=== PATIENT | male | born 1985 | race Caucasian/White ===

== ENCOUNTER 2019-09-22 01:42 | Emergency (ER) | payer OTHER, MEDICAID ==
[2019-09-22] MEDS ORDERED: XYLOCAINE 1% HCL 20 ML MDV IJ ONE (01:43)
--- NOTE | 2019-09-22 02:18 | ERPHSYRPT ---
- History of Present Illness Time Seen by Provider: 09/22/19 02:05 Source: patient, police Exam Limitations: no limitations Patient Subjective Stated Complaint: pt c/o pain to rt lower arm with edema noted to vein Triage Nursing Assessment: pt c/o pain to rt forearm with edema noted to vein site in arm anteriorly and posteriorly. Pt states, "this occured approx 2 months ago but it has just gotten worse". Pt unable to get away from the pain or lay down to get comfortable. No redness noted. Physician History: This is a 33-year-old resident male of the correction who is right-handed and presents with right forearm pain for 2 months. He does inject drugs into his veins but does not use this particular vein that is causing him pain. Occurred: other (2 months) Method of Injury: other (Drugs into his system via vein) Quality: aching Severity of Pain-Max: moderate Severity of Pain-Current: mild Extremities Pain Location: forearm: right Modifying Factors: Improves With: movement, other Associated Symptoms: No chills, No fever Allergies/Adverse Reactions: No Known Drug Allergies Allergy (Verified 09/22/19 01:55) Hx Tetanus, Diphtheria Vaccination/Date Given: Yes Hx Influenza Vaccination/Date Given: No Hx Pneumococcal Vaccination/Date Given: No Immunizations Up to Date: Yes Travel Risk - International Travel Have you traveled outside of the country in past 3 weeks: No Have you or anyone close to you been diagnosed with or: No Do your reside in a community with a known COVID-19 case?: No - Coronavirus Screening Has patient experienced Coronavirus symptoms: No - Review of Systems Constitutional: No Symptoms Eyes: No Symptoms Ears, Nose, & Throat: No Symptoms Respiratory: No Symptoms Cardiac: No Symptoms Abdominal/Gastrointestinal: No Symptoms Genitourinary Symptoms: No Symptoms, Penile Discharge Musculoskeletal: No Symptoms Skin: No Symptoms (Tenderness right forearm) Neurological: No Symptoms Psychological: No Symptoms Endocrine: No Symptoms Hematologic/Lymphatic: No Symptoms Immunological/Allergic: No Symptoms All Other Systems: Reviewed and Negative - Past Medical History Pertinent Past Medical History: Yes Neurological History: No Pertinent History ENT History: No Pertinent History Cardiac History: Hypertension Respiratory History: No Pertinent History Endocrine Medical History: No Pertinent History Musculoskeletal History: Other GI Medical History: Hepatitis History: Dialysis Psycho-Social History: Other Male Reproductive Disorders: No Pertinent History Other Medical History: hep C. compartmental syndrome - Past Surgical History Past Surgical History: Yes Neuro Surgical History: No Pertinent History Cardiac: No Pertinent History Respiratory: No Pertinent History Gastrointestinal: No Pertinent History Genitourinary: No Pertinent History Musculoskeletal: Amputation Male Surgical History: No Pertinent History Other Surgical History: LT ABOVE THE KNEE - Social History Smoking Status: Former smoker How long have you smoked: YRS Exposure to second hand smoke: Yes Drug Use: marijuana, bath salts, methamphetamines Patient Lives Alone: No (correction) - Nursing Vital Signs Nursing Vital Signs: Initial Vital Signs Temperature 99.1 F 09/22/19 01:45 Pulse Rate 84 09/22/19 01:45 Respiratory Rate 16 09/22/19 01:45 Blood Pressure 121/88 09/22/19 01:45 O2 Sat by Pulse Oximetry 100 09/22/19 01:45 Pain Scale Pain Intensity 7 - Physical Exam General Appearance: no apparent distress, alert, anxiety Eyes, Ears, Nose, Throat Exam: normal ENT inspection, moist mucous membranes Neck Exam: normal inspection, non-tender, supple, full range of motion Cardiovascular/Respiratory Exam: chest non-tender Abdominal Exam: non-tender Back Exam: normal inspection, normal range of motion, No CVA tenderness, No vertebral tenderness Shoulder Exam: normal inspection, non-tender, no evidence of injury, normal ROM Elbow/Forearm Exam: normal inspection, no evidence of injury, normal ROM, soft tissue tenderness (Along the distribution of a vein on his forearm. Feels as though it is cordlike.) Wrist Exam: normal inspection, non-tender, no evidence of injury, ecchymosis Hand Exam: normal inspection, non-tender, no evidence of injury, normal ROM Neuro/Tendon Exam: normal sensation, normal motor functions, normal tendon functions Mental Status Exam: alert, oriented x 3, cooperative Skin Exam: other (See above. Right upper extremity forearm covered in tattoos) SpO2 Interpretation: normal SpO2: 100 O2 Delivery: Room Air - Course Nursing assessment & vital signs reviewed: Yes - Progress Progress: unchanged Counseled pt/family regarding: diagnosis, need for follow-up - Departure Departure Disposition: [facility]/Senior Living Clinical Impression: Thrombophlebitis Condition: Stable Critical Care Time: No Referrals: DOCTOR,NO FAMILY [Primary Care Provider] - Additional Instructions: Warm compresses to area twice a day. Use ibuprofen and Tylenol for pain control. Take antibiotic as prescribed Prescriptions: Cephalexin Mh 500 mg [Keflex 500 mg] 500 mg PO TID #21 capsule
[2019-09-22] MEDS ORDERED: TORAdol 30 mg Injection IM ONE (02:20)
[2019-09-22] MEDS ORDERED: Rocephin 1000 MG INJ IM ONE (02:20)
[2019-09-22] MEDS ORDERED: TORAdol 30 mg Injection ONE ×2 (02:29→02:33)
[2019-09-22] MEDS ORDERED: Rocephin 1000 MG INJ ONE (02:30)
[2019-09-22 02:34] VITALS: BP 128/77; PULSE 78; O2SAT 98
== END 2019-09-22 02:48 | disposition home or self-care (01) ==
LOC: ED 01:42
DX: I80.9 Phlebitis and thrombophlebitis of unspecified site (principal); I10 Essential (primary) hypertension; B18.2 Chronic viral hepatitis C; T79.A0XA Compartment syndrome, unspecified, initial encounter; F19.10 Other psychoactive substance abuse, uncomplicated
CPT/HCPCS: 96372; 99284; J0696; J1885

== ENCOUNTER 2019-10-22 18:51 | Emergency (ER) | payer MEDICAID, OTHER ==
[2019-10-22 19:07] VITALS: O2SAT 98
--- NOTE | 2019-10-22 19:21 | ERPHSYRPT ---
- History of Present Illness Time Seen by Provider: 10/22/19 19:19 Source: patient Patient Subjective Stated Complaint: Right arm pain and swelling Triage Nursing Assessment: Patient ambulated back to ED and transferred self to bed. Patient A+O X3. Patient's skin pink, warm and dry. Patient complains of right arm pain and swelling. Patient states he was recently dx by ultrasound with a blood clot in right arm. Patient states he was touching a vein in his lower arm and felt something move up this arm. Patient's pain 8/10 constant aching pain. Right arm noted to be warm, red and swollen. 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 He states he has had this pain for the past 3 months which prompted an ultrasound of his right upper extremity finding the superficial thrombophlebitis and resulting treatment for a concern of a propagating DVT with Coumadin. He states whenever he lays his hand down at rest he noticed that his right hand turns purple in color however whenever he raises the hand he noticed that his color returns and the swelling resolves. He has been taken Tylenol for the pain with no relief. He is currently on 5 mg of Coumadin daily and reportedly has not missed a dose. He denies any fevers, chills, recent IV drug abuse and states that he usually injects in his right AC/right basilic region. He denies any recent trauma to the affected hand. Severity: mild Modifying Factors: Improves With: acetaminophen Associated Symptoms: No nausea, No vomiting, No abdominal pain, No shortness of breath, No chest pain, No fever Allergies/Adverse Reactions: No Known Drug Allergies Allergy (Verified 10/22/19 19:07) Home Medications: Acetaminophen 500 mg [Tylenol Extra Strength 500 mg] 1 tab PO BID [History] OLANZapine [Zyprexa Zydis] 1 tab PO DAILY 10/22/19 [History] Omeprazole 1 cap PO DAILY 10/22/19 [History] Warfarin Sodium 5 mg [Coumadin 5 MG] 1 tab PO DAILY 10/22/19 [History] Hx Tetanus, Diphtheria Vaccination/Date Given: Yes Hx Influenza Vaccination/Date Given: Yes Hx Pneumococcal Vaccination/Date Given: No Immunizations Up to Date: Yes Travel Risk - International Travel Have you traveled outside of the country in past 3 weeks: No (n) Have you or anyone close to you been diagnosed with or: No Do your reside in a community with a known COVID-19 case?: Yes If Yes where:: [place] - Coronavirus Screening Has patient experienced Coronavirus symptoms: No - Review of Systems Constitutional: No Fever, No Chills Ears, Nose, & Throat: No Symptoms Respiratory: No Symptoms Cardiac: No Symptoms Musculoskeletal: Other (Right forearm pain) Skin: No Symptoms All Other Systems: Reviewed and Negative - Past Medical History Pertinent Past Medical History: Yes Neurological History: No Pertinent History ENT History: No Pertinent History Cardiac History: Hypertension Respiratory History: No Pertinent History Endocrine Medical History: No Pertinent History Musculoskeletal History: Other GI Medical History: Hepatitis History: Dialysis Psycho-Social History: Other Male Reproductive Disorders: No Pertinent History Other Medical History: hep C. compartmental syndrome - Past Surgical History Past Surgical History: Yes Neuro Surgical History: No Pertinent History Cardiac: No Pertinent History Respiratory: No Pertinent History Gastrointestinal: No Pertinent History Genitourinary: No Pertinent History Musculoskeletal: Amputation Male Surgical History: No Pertinent History Other Surgical History: LT ABOVE THE KNEE - Social History Smoking Status: Former smoker How long have you smoked: YRS Exposure to second hand smoke: No Drug Use: marijuana, bath salts, methamphetamines, narcotics Patient Lives Alone: No (group home) - Nursing Vital Signs Nursing Vital Signs: Initial Vital Signs Pulse Rate 84 10/22/19 18:54 Respiratory Rate 18 10/22/19 18:54 Blood Pressure 141/109 10/22/19 18:54 O2 Sat by Pulse Oximetry 98 10/22/19 18:54 Pain Scale Pain Intensity 3 - Physical Exam General Appearance: no apparent distress, alert Eye Exam: PERRL/EOMI, eyes nml inspection Ears, Nose, Throat Exam: normal ENT inspection, No pharyngeal erythema, No tonsillar exudate Neck Exam: normal inspection, non-tender, supple Respiratory Exam: normal breath sounds, lungs clear, airway intact, No chest tenderness, No respiratory distress, No diminished breath sounds, No accessory muscle use, No prolonged expirations Cardiovascular Exam: regular rate/rhythm, normal heart sounds, normal peripheral pulses, capillary refill <2 sec, No murmur, No edema, No pulse deficit Gastrointestinal/Abdomen Exam: soft, No tenderness, No distention, No mass Rectal Exam: deferred, not done Back Exam: normal inspection Extremity Exam: other (Tenderness to the dorsal aspect of the distal right wrist. No obvious swelling, erythema, induration or fluctance noted to the entire right upper extremity. No deformity or crepitus. No pain out of proportion. Compartments are soft in the entire right arm. Motor function intact in the right hand. Left lower leg was surgically amputated. Both the RUE and LUE appeared to be equal in size.. ), No swelling Neurologic Exam: alert, oriented x 3, cooperative Skin Exam: normal color, warm, dry, other (No evidence of erythema, increased warmth, induration, fluctance, or palpable cords noted to the entire RUE), No rash, No petechiae, No jaundice, No abrasion, No cyanosis, No jaundice, No laceration, No mottled, No pale SpO2: 98 O2 Delivery: Room Air - Course Nursing assessment & vital signs reviewed: Yes - Radiology Exams Wrist X-ray Interpretation: Interpreted by me, Reviewed by me, Negative (No evidence of fracture, dislocation, retained foreign body, soft tissue swelling or soft tissue air) Ordered Tests: Active Orders 24 hr Category Date Time Status WRIST (MIN 3 VIEWS) Stat Exams 10/22/19 19:28 Taken BMP Stat Lab 10/22/19 19:25 Completed CBC W DIFF Stat Lab 10/22/19 19:25 Completed PROTIME WITH INR Stat Lab 10/22/19 19:25 Completed Medication Summary Discontinued Medications Generic Name Dose Route Start Last Admin Trade Name Freq PRN Reason Stop Dose Admin Enoxaparin Sodium 110 mg 10/22/19 20:09 10/22/19 20:32 Enoxaparin Sodium SQ 10/22/19 20:10 Not Given 1XONLY ONE Enoxaparin Sodium Confirm 10/22/19 20:31 Enoxaparin Sodium Administered 10/22/19 20:32 Dose 80 mg SQ .STK-MED ONE Enoxaparin Sodium 80 mg 10/22/19 20:32 10/22/19 20:44 Enoxaparin Sodium SQ 10/22/19 20:33 Not Given STAT ONE Enoxaparin Sodium 110 mg 10/22/19 20:37 10/22/19 20:43 Enoxaparin Sodium SQ 10/22/19 20:38 110 mg STAT STA Administration Enoxaparin Sodium Confirm 10/22/19 20:41 Enoxaparin Sodium Administered 10/22/19 20:42 Dose 120 mg SQ .STK-MED ONE Lab/Rad Data: Laboratory Result Diagrams 10/22/19 19:25 10/22/19 19:25 Laboratory Results 10/22/19 10/22/19 10/22/19 Range/Units 19:25 19: 19: WBC 6.7 (4.0-10.5) K/mm3 RBC 4.92 (4.1-5.6) M/mm3 Hgb 15.0 (12.5-18.0) gm/dl Hct 43.6 (42-50) % MCV 88.6 (78-100) fl MCH 30.5 (26-32) pg MCHC 34.4 (32-36) g/dl RDW 14.2 H (11.5-14.0) % Plt Count 201 (150-450) K/mm3 MPV 9.3 (7.5-11.0) fl Gran % 57.1 (36.0-66.0) % Eos # (Auto) 0.22 (0-0.5) Absolute Lymphs (auto) 2.02 (1.0-4.6) Absolute Monos (auto) 0.62 (0.0-1.3) Lymphocytes % 30.1 (24.0-44.0) % Monocytes % 9.2 (0.0-12.0) % Eosinophils % 3.3 (0.00-5.0) % Basophils % 0.3 (0.0-0.4) % Absolute Granulocytes 3.84 (1.4-6.9) Basophils # 0.02 (0-0.4) PT 16.1 H (8.83-12.87) SECONDS INR 1.41 (0.8-3.0) Sodium 142 (137-145) mmol/L Potassium 4.3 (3.5-5.1) mmol/L Chloride 103 (98-107) mmol/L Carbon Dioxide 30 (22-30) mmol/L Anion Gap 12.4 (5-15) MEQ/L BUN 13 (9-20) mg/dL Creatinine 0.81 (0.66-1.25) mg/dL Estimated GFR > 60.0 ML/MIN Glucose 92 (74-106) mg/dL Calcium 9.6 (8.4-10.2) mg/dL - Progress Progress: unchanged Progress Note: 10/22/19 20:14 I reviewed the US report of the RUE that was brought with the patient. US was performed on 09/26/19 and significant for a superficial thrombus in the right basilic vein but was close to the deep venous system which prompted him to be treated with anticoagulant, specifically warfarin. I spoke to Dr. Hills, group home physician, and discussed the case with him. He was ok with me scheduling a RUE US as an OP for a later date and ok bridging with Lovenox for 5 days while he managed the patient's Coumadin level and monitored his INR until the patient was therapeutic while the patient was in group home. 10/23/19 00:24 The patient received Lovenox prior to discharge for a subtherapeutic INR. Outpatient US scheduled for 10/24/19 with radiology at this facility. Low suspicion for infectious etiology. Pain could be from superficial thrombophlebitis, contusion, or malingering. 10/23/19 00:29 Counseled pt/family regarding: lab results, diagnosis, need for follow-up, rad results - Departure Departure Disposition: In-patient Admission, Custodial/Halfway Clinical Impression: Wrist pain, right, Subtherapeutic anticoagulation Condition: Stable Critical Care Time: No Referrals: DOCTOR,NO FAMILY [Primary Care Provider] - Instructions: Enoxaparin, Warfarin Additional Instructions: Please return to [facility] on 10/24/19 at 09:30 to the outpatient radiology department for your scheduled ultrasound of your right upper extremity. Please take 110 mg of Lovenox daily SQ until you are therapeutic on your warfarin or your INR is therapeutic levels between 2-3. You will need to have your warfarin dose adjusted accordingly by Dr. Hills. He has ageed to do this while you are in group home. Your INR today was 1.41 Prescriptions: Enoxaparin Sodium [Lovenox] 110 mg SQ DAILY 5 Days #5 syringe
[2019-10-22 19:30] LABS: Absolute Neutrophil Ct (ANC) 3.84 (1.4-6.9); BASOPHIL % 0.3 % (0.0-0.4); Basophil (Absolute #) 0.02 (0-0.4); Eosinophil % 3.3 % (0.00-5.0); Eosinophil (Absolute #) 0.22 (0-0.5); Hematocrit 43.6 % (42-50); Lymphocyte (Absolute #) 2.02 (1.0-4.6); Lymphocytes % 30.1 % (24.0-44.0); Mean Cell Volume 88.6 fl (78-100); Mean Corpuscular Hemoglobin 30.5 pg (26-32); Mean Corpuscular Hgb Concent. 34.4 g/dl (32-36); Mean Platelet Volume 9.3 fl (7.5-11.0); Monocyte (Absolute #) 0.62 (0.0-1.3); Monocytes % 9.2 % (0.0-12.0); Neutrophil % 57.1 % (36.0-66.0); Platelet Count 201 K/mm3 (150-450); Red Blood Count 4.92 M/mm3 (4.1-5.6); Red Cell Distribution Width 14.2 % (11.5-14.0); White Blood Count 6.7 K/mm3 (4.0-10.5)
[2019-10-22 19:32] LABS: INR 1.41 (0.8-3.0); PROTIME 16.1 SECONDS (8.83-12.87)
[2019-10-22 19:36] LABS: ANION GAP 12.4 MEQ/L (5-15); BLOOD UREA NITROGEN 13 mg/dL (9-20); CHLORIDE 103 mmol/L (98-107); Calcium 9.6 mg/dL (8.4-10.2); Carbon Dioxide 30 mmol/L (22-30); Creatinine 1 0.81 mg/dL (0.66-1.25); Glucose 92 mg/dL (74-106); Potassium 4.3 mmol/L (3.5-5.1); SODIUM 142 mmol/L (137-145)
[2019-10-22] MEDS ORDERED: ENOXAPARIN SODIUM SQ ONE ×3 (20:09→20:41)
[2019-10-22] MEDS: ENOXAPARIN SODIUM SQ ONE ×2 (20:35→20:44)
[2019-10-22] MEDS: ENOXAPARIN SODIUM SQ STA ×2 (20:41→20:43)
[2019-10-22 20:55] VITALS: BP 142/84; PULSE 81
--- NOTE | 2019-10-23 08:13 | XRAY ---
Indication: Pain. Foreign body. Comparison: None 3 view right wrist obtained. No bony, articular, or soft tissue abnormalities.
== END 2019-10-22 21:07 | disposition home or self-care (01) ==
LOC: ED 18:51 → EEVIPCON 18:51 → ED 21:07
DX: M25.531 Pain in right wrist (principal); Z79.01 Long term (current) use of anticoagulants; M79.89 Other specified soft tissue disorders
CPT/HCPCS: 36415; 73110; 80048; 85025; 85610; 96372; 99284; J1650

== ENCOUNTER 2021-11-13 23:56 | Emergency (ER) | payer OTHER ==
[2021-11-14] MEDS ORDERED: Sodium Chloride 0.9% 1000 ML 1,000 ML IV STA
[2021-11-14] MEDS ORDERED: Zofran 4 MG/2 ML VIAL IV ONE
[2021-11-14] MEDS ORDERED: Ativan 2 MG/1 ML VIAL IV ONE (00:02)
[2021-11-14] MEDS ORDERED: Pepcid 20 MG VIAL IV ONE ×2 (00:02→00:30)
--- NOTE | 2021-11-14 00:08 | ERPHSYRPT ---
- History of Present Illness Time Seen by Provider: 11/14/21 00:00 Physician History: Patient is brought into the emergency department by EMS after smoking bath salts and vomiting. Patient feels overall not well and he feels he might potentially be septic. Timing/Duration: today Severity: moderate Modifying Factors: Worsens With: other (After smoking bath salts) Associated Symptoms: nausea, vomiting, chills, malaise, No abdominal pain, No shortness of breath, No diaphoresis, No cough, No chest pain, No fever, No he adaches, No loss of appetite, No rash, No syncope, No seizure, No weakness Allergies/Adverse Reactions: No Known Drug Allergies Allergy (Verified 11/14/21 00:01) Home Medications: Gabapentin [Neurontin ] 1 cap PO TID 11/14/21 [History] Hx Tetanus, Diphtheria Vaccination/Date Given: Yes Hx Influenza Vaccination/Date Given: Yes Hx Pneumococcal Vaccination/Date Given: No - Review of Systems Constitutional: Lethargy, Malaise, No Fever, No Chills Eyes: No Symptoms, No Eye Pain, No Vision Changes Ears, Nose, & Throat: No Symptoms, No Ear Pain, No Nose Pain, No Nose Discharge, No Mouth Pain, No Mouth Swelling Respiratory: No Cough, No Dyspnea Cardiac: No Chest Pain, No Edema, No Syncope Abdominal/Gastrointestinal: Nausea, Vomiting, No Abdominal Pain, No Diarrhea, No Hematemesis, No Hematochezia, No Melena Genitourinary Symptoms: No Dysuria, No Hematuria, No Flank Pain Musculoskeletal: No Back Pain, No Neck Pain Skin: No Rash Neurological: No Dizziness, No Focal Weakness, No Sensory Changes Psychological: No Symptoms, Drug Abuse, Anxiety, Emotional Lability, No Alcohol Abuse Endocrine: No Symptoms, No Polydipsia Hematologic/Lymphatic: No Easy Bleeding, No Easy Bruising All Other Systems: Reviewed and Negative - Past Medical History Pertinent Past Medical History: Yes Neurological History: No Pertinent History ENT History: No Pertinent History Cardiac History: Hypertension Respiratory History: No Pertinent History Endocrine Medical History: No Pertinent History Musculoskeletal History: Other GI Medical History: Hepatitis History: Dialysis Psycho-Social History: Other Male Reproductive Disorders: No Pertinent History Other Medical History: hep C. compartmental syndrome - Past Surgical History Past Surgical History: Yes Neuro Surgical History: No Pertinent History Cardiac: No Pertinent History Respiratory: No Pertinent History Gastrointestinal: No Pertinent History Genitourinary: No Pertinent History Musculoskeletal: Amputation Male Surgical History: No Pertinent History Other Surgical History: LT ABOVE THE KNEE - Social History Smoking Status: Former smoker How long have you smoked: YRS Exposure to second hand smoke: No Drug Use: marijuana, bath salts, methamphetamines, narcotics Patient Lives Alone: No (care home) - Nursing Vital Signs Nursing Vital Signs: Initial Vital Signs Temperature 97.5 F 11/13/21 23:59 Pulse Rate 82 11/13/21 23:59 Respiratory Rate 18 11/13/21 23:59 Blood Pressure 110/85 11/13/21 23:59 O2 Sat by Pulse Oximetry 100 11/13/21 23:59 Pain Scale Pain Intensity 3 - Physical Exam General Appearance: mild distress, alert, thin Eye Exam: PERRL/EOMI, eyes nml inspection, No scleral icterus, No pale conjunctivae Ears, Nose, Throat Exam: normal ENT inspection, TMs normal, pharynx normal, moist mucous membranes Neck Exam: normal inspection, non-tender, supple, full range of motion, No meningismus, No Brudzinski, No Kernig's Respiratory Exam: normal breath sounds, lungs clear, airway intact, No respiratory distress, No accessory muscle use, No crackles/rales, No rhonchi, No wheezing, No stridor Cardiovascular Exam: regular rate/rhythm, normal heart sounds, normal peripheral pulses Gastrointestinal/Abdomen Exam: soft, normal bowel sounds, No tenderness, No mass, No guarding Back Exam: normal inspection, normal range of motion, No CVA tenderness, No vertebral tenderness Extremity Exam: normal inspection, normal range of motion, pelvis stable Neurologic Exam: alert, oriented x 3, cooperative, screen maker II-XII nml as tested, normal mood/affect, nml cerebellar function, nml station & gait, sensation nml, No motor deficits Skin Exam: normal color, warm, dry, abrasion, other (Patient has multiple excoriations throughout his scans in the extremities and face as well as abrasions to these locations), No rash, No petechiae, No jaundice, No laceration, No mottled Lymphatic Exam: No adenopathy SpO2 Interpretation: normal O2 Delivery: Room Air - Course Nursing assessment & vital signs reviewed: Yes EKG Interpreted by Me: RATE (84), Sinus Rhythm, NORMAL AXIS, NORMAL INTERVALS, NORMAL QRS, NORMAL ST-T - Radiology Exams Chest X-ray Interpretation: Interpreted by me, Reviewed by me, Negative, No Pneumonia, No Pneumothorax, Nml Alignment, Nml Heart Size, No Infiltrates, Nml Mediastinum, Nml Soft Tissues Ordered Tests: Active Orders 24 hr Category Date Time Status Generator Rebuilder STAT Care 11/14/21 00:02 Active Clean Catch Urine Specimen STAT Care 11/14/21 00:07 Active EKG-ER Only STAT Care 11/14/21 00:00 Active IV Insertion STAT Care 11/14/21 00:00 Active Pulse Oximetry (ED) STAT Care 11/14/21 00:00 Active CHEST 1 VIEW (PORTABLE) Stat Exams 11/14/21 00:29 Taken Alcohol [ETHYL ALCOHOL] Stat Lab 11/14/21 00:35 Completed BLOOD CULTURE Stat Lab 11/14/21 00:01 Ordered CBC W DIFF Stat Lab 11/14/21 00:30 Completed CK-Creatinine Phosphokinase Stat Lab 11/14/21 00:30 Completed CMP Stat Lab 11/14/21 00:30 Completed Lactic Acid Stat Lab 11/14/21 00:22 Completed PROCALCITONIN Stat Lab 11/14/21 00:30 Completed PROTIME WITH INR Stat Lab 11/14/21 00:30 Completed UA W/RFX CULTURE Stat Lab 11/14/21 Ordered Urine Triage Profile Stat Lab 11/14/21 Ordered VENOUS BLOOD GAS Stat Lab 11/14/21 00:17 Completed Medication Summary Discontinued Medications Generic Name Dose Route Start Last Admin Trade Name Freq PRN Reason Stop Dose Admin Famotidine 20 mg 11/14/21 00:02 Famotidine 20 Mg/1 Vial IV 11/14/21 00:03 STAT ONE Famotidine Confirm 11/14/21 00:30 Famotidine 20 Mg/1 Vial Administered 11/14/21 00:31 Dose 20 mg IV .STK-MED ONE Sodium Chloride 1,000 mls @ 999 mls/hr 11/14/21 00:00 Sodium Chloride 0.9% 1000 Ml IV 11/14/21 01:00 .Q1H1M STA Sodium Chloride Confirm 11/14/21 00:30 Sodium Chloride 0.9% 1000 Ml Administered 11/14/21 00:31 Dose 1,000 mls @ ud .ROUTE .STK-MED ONE Lorazepam 1 mg 11/14/21 00:02 Lorazepam 2 Mg/1 Ml 2 Mg Vial IV 11/14/21 00:03 STAT ONE Lorazepam Confirm 11/14/21 00:30 Lorazepam 2 Mg/1 Ml 2 Mg Vial Administered 11/14/21 00:31 Dose 2 mg .ROUTE .STK-MED ONE Ondansetron HCl 4 mg 11/14/21 00:00 Ondansetron Hcl 4 Mg/2 Ml Vial IV 11/14/21 00:01 STAT ONE Ondansetron HCl Confirm 11/14/21 00:30 Ondansetron Hcl 4 Mg/2 Ml Vial Administered 11/14/21 00:31 Dose 4 mg .ROUTE .STK-MED ONE Lab/Rad Data: Laboratory Result Diagrams 11/14/21 00:30 11/14/21 00:30 Laboratory Results 11/14/21 11/14/21 11/14/21 Range/Units 00:35 00:30 00:30 WBC (4.0-10.5) x10^3/uL RBC (4.1-5.6) x10^6/uL Hgb (12.5-18.0) g/dL Hct (42-50) % MCV (78-100) fL MCH (26-32) pg MCHC (32-36) g/dL RDW (11.5-14.0) % Plt Count (150-450) x10^3/uL MPV (7.5-11.0) fL Gran % (36.0-66.0) % Immature Gran % (Auto) (0.00-0.4) % Nucleat RBC Rel Count (0.00-0.1) % Eos # (Auto) (0-0.5) x10^3/uL Immature Gran # (Auto) (0.00-0.03) x10^3u/L Absolute Lymphs (auto) (1.0-4.6) x10^3/uL Absolute Monos (auto) (0.0-1.3) x10^3/uL Absolute Nucleated RBC (0.00-0.01) x10^3u/L Lymphocytes % (24.0-44.0) % Monocytes % (0.0-12.0) % Eosinophils % (0.00-5.0) % Basophils % (0.0-0.4) % Absolute Granulocytes (1.4-6.9) x10^3/uL Basophils # (0-0.4) x10^3/uL PT 10.8 (9.4-12.5) SECONDS INR 1.02 (0.8-3.0) pO2/FiO2 Ratio % VBG pH (7.32-7.42) VBG pCO2 at Pat Temp (42-55) mm/Hg VBG pO2 at Pat Temp (25-40) mm/Hg VBG HCO3 (22-28) meq/L VBG O2 Sat (Heena) (95-100) VBG Base Excess (-2.0-2.0) VBG Hemoglobin VBG Carboxyhemoglobin (0.0-6.9) % T HGB POC Potassium (3.5-5.1) Sodium (137-145) mmol/L Potassium (3.5-5.1) mmol/L Chloride (98-107) mmol/L Carbon Dioxide (22-30) mmol/L Anion Gap (5-15) MEQ/L BUN (9-20) mg/dL Creatinine (0.66-1.25) mg/dL Estimated GFR ML/MIN Glucose (74-106) mg/dL Lactic Acid (0.4-2.0) Calcium (8.4-10.2) mg/dL Total Bilirubin (0.2-1.3) mg/dL AST (17-59) U/L ALT (0-50) U/L Alkaline Phosphatase (38-126) U/L Creatine Kinase (55-170) U/L Serum Total Protein (6.3-8.2) g/dL Albumin (3.5-5.0) g/dL Procalcitonin 0.046 (0.030-0.080) ng/mL Ethyl Alcohol < 10 (0-10) mg/dL 11/14/21 11/14/21 11/14/21 Range/Units 00:30 00:30 00:22 WBC 7.8 (4.0-10.5) x10^3/uL RBC 4.59 (4.1-5.6) x10^6/uL Hgb 13.7 (12.5-18.0) g/dL Hct 42.0 (42-50) % MCV 91.5 (78-100) fL MCH 29.8 (26-32) pg MCHC 32.6 (32-36) g/dL RDW 13.6 (11.5-14.0) % Plt Count 203 (150-450) x10^3/uL MPV 9.5 (7.5-11.0) fL Gran % 66.9 H (36.0-66.0) % Immature Gran % (Auto) 0.3 (0.00-0.4) % Nucleat RBC Rel Count 0.0 (0.00-0.1) % Eos # (Auto) 0.17 (0-0.5) x10^3/uL Immature Gran # (Auto) 0.02 (0.00-0.03) x10^3u/L Absolute Lymphs (auto) 1.85 (1.0-4.6) x10^3/uL Absolute Monos (auto) 0.50 (0.0-1.3) x10^3/uL Absolute Nucleated RBC 0.00 (0.00-0.01) x10^3u/L Lymphocytes % 23.6 L (24.0-44.0) % Monocytes % 6.4 (0.0-12.0) % Eosinophils % 2.2 (0.00-5.0) % Basophils % 0.6 (0.0-0.4) % Absolute Granulocytes 5.24 (1.4-6.9) x10^3/uL Basophils # 0.05 (0-0.4) x10^3/uL PT (9.4-12.5) SECONDS INR (0.8-3.0) pO2/FiO2 Ratio % VBG pH (7.32-7.42) VBG pCO2 at Pat Temp (42-55) mm/Hg VBG pO2 at Pat Temp (25-40) mm/Hg VBG HCO3 (22-28) meq/L VBG O2 Sat (Heena) (95-100) VBG Base Excess (-2.0-2.0) VBG Hemoglobin VBG Carboxyhemoglobin (0.0-6.9) % T HGB POC Potassium (3.5-5.1) Sodium 139 (137-145) mmol/L Potassium 4.1 (3.5-5.1) mmol/L Chloride 105 (98-107) mmol/L Carbon Dioxide 22 (22-30) mmol/L Anion Gap 16.3 H (5-15) MEQ/L BUN 13 (9-20) mg/dL Creatinine 1.06 (0.66-1.25) mg/dL Estimated GFR > 60.0 ML/MIN Glucose 137 H (74-106) mg/dL Lactic Acid 2.4 H (0.4-2.0) Calcium 9.2 (8.4-10.2) mg/dL Total Bilirubin 0.30 (0.2-1.3) mg/dL AST 27 (17-59) U/L ALT 20 (0-50) U/L Alkaline Phosphatase 139 H (38-126) U/L Creatine Kinase 213 H (55-170) U/L Serum Total Protein 6.8 (6.3-8.2) g/dL Albumin 3.8 (3.5-5.0) g/dL Procalcitonin (0.030-0.080) ng/mL Ethyl Alcohol (0-10) mg/dL 11/14/21 Range/Units 00:17 WBC (4.0-10.5) x10^3/uL RBC (4.1-5.6) x10^6/uL Hgb (12.5-18.0) g/dL Hct (42-50) % MCV (78-100) fL MCH (26-32) pg MCHC (32-36) g/dL RDW (11.5-14.0) % Plt Count (150-450) x10^3/uL MPV (7.5-11.0) fL Gran % (36.0-66.0) % Immature Gran % (Auto) (0.00-0.4) % Nucleat RBC Rel Count (0.00-0.1) % Eos # (Auto) (0-0.5) x10^3/uL Immature Gran # (Auto) (0.00-0.03) x10^3u/L Absolute Lymphs (auto) (1.0-4.6) x10^3/uL Absolute Monos (auto) (0.0-1.3) x10^3/uL Absolute Nucleated RBC (0.00-0.01) x10^3u/L Lymphocytes % (24.0-44.0) % Monocytes % (0.0-12.0) % Eosinophils % (0.00-5.0) % Basophils % (0.0-0.4) % Absolute Granulocytes (1.4-6.9) x10^3/uL Basophils # (0-0.4) x10^3/uL PT (9.4-12.5) SECONDS INR (0.8-3.0) pO2/FiO2 Ratio 21.0 % VBG pH 7.44 H (7.32-7.42) VBG pCO2 at Pat Temp 34 L (42-55) mm/Hg VBG pO2 at Pat Temp 60 H (25-40) mm/Hg VBG HCO3 23.1 (22-28) meq/L VBG O2 Sat (Heena) 94.1 L (95-100) VBG Base Excess -0.5 (-2.0-2.0) VBG Hemoglobin 13.9 VBG Carboxyhemoglobin 4.6 (0.0-6.9) % T HGB POC Potassium 3.9 (3.5-5.1) Sodium (137-145) mmol/L Potassium (3.5-5.1) mmol/L Chloride (98-107) mmol/L Carbon Dioxide (22-30) mmol/L Anion Gap (5-15) MEQ/L BUN (9-20) mg/dL Creatinine (0.66-1.25) mg/dL Estimated GFR ML/MIN Glucose (74-106) mg/dL Lactic Acid (0.4-2.0) Calcium (8.4-10.2) mg/dL Total Bilirubin (0.2-1.3) mg/dL AST (17-59) U/L ALT (0-50) U/L Alkaline Phosphatase (38-126) U/L Creatine Kinase (55-170) U/L Serum Total Protein (6.3-8.2) g/dL Albumin (3.5-5.0) g/dL Procalcitonin (0.030-0.080) ng/mL Ethyl Alcohol (0-10) mg/dL - Progress Progress: improved Progress Note: 11/14/21 01:04 Patient is declining IV fluids and IV medications. 11/14/21 01:36 Patient will not give a urine and does not want any IV fluids or any medications. He is calm at this time and is resting comfortably, and says he does not want any IV hydration which would help with his slightly elevated CK and slightly elevated lactic acid, patient will be discharged to follow-up as an outpatient since he has no concerning findings on his lab work, negative chest x -ray, negative EKG and has maintained sinus rhythm and hemodynamically good condition with no signs of respiratory distress or any physical outbursts of aberrant behavior or abnormal behavior during his time in the emergency department - Departure Departure Disposition: Extended Care Facility Clinical Impression: Drug abuse and dependence, Nausea and vomiting, Elevated lactic acid level, Elevated CK Condition: Stable Critical Care Time: No Referrals: DOCTOR,NO FAMILY [Primary Care Provider] - Follow up/PCP as directed Instructions: Drug Abuse and Drug Addiction (DC), Nausea and Vomiting, Adult (DC) Additional Instructions: Do your best to avoid any street drugs or any other illicit drug use. Try to attend meetings every day to help you with avoidance of your drug use. Try to establish with counseling. Return to the nearest emergency room if you have any uncontrollable vomiting, new chest pain, new fever, new shortness of breath, new abdominal pain, new skin rash, new fever, new blood in your stool, any black stools, new vomiting blood or any other concerning signs or symptoms that were not present at today's emergency room visit for immediate reevaluation in the nearest emergency department
[2021-11-14 00:27] LABS: VBG BASE EXCESS -0.5 (-2.0-2.0); VBG CARBOXYHEMOGLOBIN 4.6 % T HGB (0.0-6.9); VBG HCO3- 23.1 meq/L (22-28); VBG HEMOGLOBIN 13.9; VBG O2 SATURATION 94.1 (95-100); VBG POTASSIUM 3.9 (3.5-5.1); VBG pH 7.44 (7.32-7.42)
[2021-11-14] MEDS ORDERED: Zofran 4 MG/2 ML VIAL ONE (00:30)
[2021-11-14] MEDS ORDERED: Sodium Chloride 0.9% 1000 ML 0 ML ONE (00:30)
[2021-11-14] MEDS ORDERED: Ativan 2 MG/1 ML VIAL ONE (00:30)
[2021-11-14 00:34] LABS: Absolute Neutrophil Ct (ANC) 5.24 x10^3/uL (1.4-6.9); Basophil (Absolute #) 0.05 x10^3/uL (0-0.4); Eosinophil % 2.2 % (0.00-5.0); Eosinophil (Absolute #) 0.17 x10^3/uL (0-0.5); Hemoglobin 13.7 g/dL (12.5-18.0); Lymphocyte (Absolute #) 1.85 x10^3/uL (1.0-4.6); Lymphocytes % 23.6 % (24.0-44.0); Mean Cell Volume 91.5 fL (78-100); Mean Corpuscular Hemoglobin 29.8 pg (26-32); Mean Corpuscular Hgb Concent. 32.6 g/dL (32-36); Mean Platelet Volume 9.5 fL (7.5-11.0); Monocytes % 6.4 % (0.0-12.0); Neutrophil % 66.9 % (36.0-66.0); Platelet Count 203 x10^3/uL (150-450); Red Blood Count 4.59 x10^6/uL (4.1-5.6); Red Cell Distribution Width 13.6 % (11.5-14.0); White Blood Count 7.8 x10^3/uL (4.0-10.5)
[2021-11-14 00:47] LABS: ALBUMIN 3.8 g/dL (3.5-5.0); ALKALINE PHOSPHATASE 139 U/L (38-126); ANION GAP 16.3 MEQ/L (5-15); BLOOD UREA NITROGEN 13 mg/dL (9-20); CHLORIDE 105 mmol/L (98-107); CK-Creatinine Phosphokinase 213 U/L (55-170); Calcium 9.2 mg/dL (8.4-10.2); Carbon Dioxide 22 mmol/L (22-30); Creatinine 1 1.06 mg/dL (0.66-1.25); EST GLOMERULAR FILTRATION RATE > 60.0 ML/MIN; Glucose 137 mg/dL (74-106); INR 1.02 (0.8-3.0); PROTIME 10.8 SECONDS (9.4-12.5); Potassium 4.1 mmol/L (3.5-5.1); SGOT/AST 27 U/L (17-59); SGPT/ALT 20 U/L (0-50); SODIUM 139 mmol/L (137-145); Total Protein 6.8 g/dL (6.3-8.2)
[2021-11-14 04:58] VITALS: BP 120/80; PULSE 76; O2SAT 96
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
== END 2021-11-14 04:57 | disposition home or self-care (01) ==
LOC: ED 23:56
DX: F15.10 Other stimulant abuse, uncomplicated (principal); R11.2 Nausea with vomiting, unspecified; R79.89 Other specified abnormal findings of blood chemistry; R74.8 Abnormal levels of other serum enzymes; R53.83 Other fatigue; I10 Essential (primary) hypertension
CPT/HCPCS: 36000; 36415; 71045; 80053; 82550; 82805; 83605; 84145; 85025; 85610; 87040; 93005; 93041; 94760; 99284; G0480; 80307; J2060; J2405

== ENCOUNTER 2023-07-04 15:28 | Emergency (ER) | payer OTHER | END 2023-07-04 16:12 | disposition left against medical advice (07) | LOC: ED 15:28 | DX: Z53.21 Procedure and treatment not carried out due to patient leaving prior to being seen by health care provider (principal) | CPT/HCPCS: 99281 ==

== ENCOUNTER 2024-09-22 00:16 | Emergency (ER) | payer OTHER ==
[2024-09-22 00:38] VITALS: TEMP 98.5
[2024-09-22 00:53] LABS: Absolute Neutrophil Ct (ANC) 7.37 x10^3/uL (1.78-5.38); BASOPHIL % 0.2 % (0.2-1.2); Basophil (Absolute #) 0.02 x10^3/uL (0.01-0.08); Eosinophil % 1.6 % (0.8-7.0); Eosinophil (Absolute #) 0.16 x10^3/uL (0.04-0.54); Hematocrit 40.1 % (40.1-51.0); Hemoglobin 13.5 g/dL (13.7-17.5); IMMATURE GRAN # 0.03 x10^3u/L (0.001-0.031); IMMATURE GRAN % 0.3 % (0.001-0.429); Lymphocytes % 16.1 % (21.8-53.1); Mean Cell Volume 87.9 fL (79.0-92.2); Mean Corpuscular Hemoglobin 29.6 pg (25.7-32.2); Mean Corpuscular Hgb Concent. 33.7 g/dL (32.3-36.5); Monocyte (Absolute #) 0.74 x10^3/uL (0.30-0.82); Monocytes % 7.5 % (5.3-12.2); Neutrophil % 74.3 % (34.0-67.9); Platelet Count 240 x10^3/uL (163-337); Red Blood Count 4.56 x10^6/uL (4.63-6.08); Red Cell Distribution Width 13.1 % (11.6-14.4); White Blood Count 9.9 x10^3/uL (4.23-9.07)
[2024-09-22 01:04] LABS: ALBUMIN 4.3 g/dL (3.5-5.0); ANION GAP 10.8 MEQ/L (5-15); BILIRUBIN,TOTAL 0.5 mg/dL (0.2-1.3); Calcium 8.9 mg/dL (8.4-10.2); Creatinine 1 0.88 mg/dL (0.66-1.25); EST GLOMERULAR FILTRATION RATE 114.3 ML/MIN; Potassium 3.6 mmol/L (3.5-5.1); Total Protein 7.4 g/dL (6.3-8.2)
[2024-09-22 01:06] LABS: Appearance Clear (Clear); Bacteria None Seen /HPF (None Seen); Bilirubin Negative (Negative); Blood Negative (Negative); Epithelial Cells None Seen /HPF (None Seen); Glucose, Urine Negative (Negative); Ketones Trace (Negative); Leukocyte Esterase Negative (Negative); Nitrite Negative (Negative); Protein,Urine Dip 30 (Negative); RBC 0-2 /HPF (0-5); Specific Gravity 1.025 (1.005-1.030); WBC 0-2 /HPF (0-5)
[2024-09-22 01:17] LABS: Barbiturate,Urine NEGATIVE (NEGATIVE); Benzodiazepine,Urine NEGATIVE (NEGATIVE); Cocaine,Urine NEGATIVE (NEGATIVE); Methadone,Urine NEGATIVE (NEGATIVE); Opiate,Urine NEGATIVE (NEGATIVE); PCP,Urine NEGATIVE (NEGATIVE); THC,Urine POSITIVE (NEGATIVE)
[2024-09-22 01:43] LABS: Amphetamine,Urine POSITIVE (NEGATIVE)
[2024-09-22 02:01] VITALS: O2SAT 98
--- NOTE | 2024-09-22 02:43 | XRAY ---
CLINICAL HISTORY: pain COMPARISON: 18:22:57 WAX SPECIALIST TECHNIQUE: Multiple contiguous axial images were obtained from the level of diaphragm to the pubis symphysis. This study was acquired after the IV administration of iodinated contrast material, given the patients indications for the examination. If IV contrast material had not been administered, the likelihood of detecting abnormalities relevant to the patients condition would have been substantially decreased. Coronal and sagittal reformatted images were generated and reviewed to improve anatomic localization and optimize lesion detection. CT scan was performed according to ALARA (as low as reasonable achievable). FINDINGS: The visualized lung bases are clear. ABDOMEN/PELVIS: The liver is normal in size and attenuation. No focal liver lesions are seen. There is no intra or extrahepatic biliary ductal dilatation. Hepatic vasculature is patent. The gallbladder is unremarkable. The spleen, pancreas, and adrenal glands are unremarkable. The kidneys are normal in size and attenuation. There is no hydronephrosis or perinephric fat stranding. No renal calculi or renal masses are identified. The ureters are normal in caliber and no ureteral calculi are seen. The bladder is normal in contour. No evidence of focal or diffuse bowel wall thickening or evidence of bowel obstruction is seen. The appendix is visualized in the right lower quadrant and appears within normal limits. No adenopathy or fluid collections are seen. The aorta is normal in caliber. No aggressive appearing osseous lesions are identified. IMPRESSION: Unremarkable study. No interval change Electronically Signed by: Wilian Aguirre MD. (09/22/2024 02:38:57 EDT)
--- NOTE | 2024-09-22 02:57 | XRAY ---
CLINICAL HISTORY: pain COMPARISON: . None. TECHNIQUE: Contiguous axial images were obtained from the neck base through the upper abdomen following intravenous administration of contrast material. If IV contrast material had not been administered, the likelihood of detecting abnormalities relevant to the patient's condition would have been substantially decreased. In addition, sagittal and coronal reconstructions were performed. CT scan was performed according to ALARA (as low as reasonable achievable). FINDINGS: The lungs are clear, with no focal areas of consolidation. A calcified 4 mm nodule noted in left upper lobe. The central airways are patent. There are no pleural effusions. No pneumothorax is seen. No axillary, hilar, or mediastinal adenopathy is identified. The visualized thyroid is unremarkable. The heart, aorta, and pulmonary arteries are of normal size and configuration. No pericardial effusion is identified. Imaged portions of the upper abdomen are unremarkable. No aggressive appearing osseous lesions are identified. IMPRESSION: Unremarkable study Electronically Signed by: Wilian Aguirre MD. (09/22/2024 02:52:05 EDT)
--- NOTE | 2024-09-22 02:59 | XRAY ---
CLINICAL HISTORY: pain COMPARISON: None. TECHNIQUE: Computed tomography of the cervical spine performed without intravenous contrast. Contiguous axial images were obtained from the skull base to T2, with sagittal and coronal reformatted images reconstructed from the axial data. CT scan was performed according to ALARA (as low as reasonable achievable). FINDINGS: The normal cervical lordotic curvature is lost due to muscle spasm. Small marginal osteophytes are noted involving multiple cervical vertebra Cervical vertebral bodies are normal in height and alignment, with no evidence of fracture or subluxation. Lateral masses of C1 are symmetrical, and the dens is intact. Prevertebral soft tissues are not widened. The remaining suprahyoid and infrahyoid soft tissues in the neck are unremarkable. C2-C3: No disc bulge, mass effect on the cord or neuroforaminal narrowing. C3-C4: No disc bulge, mass effect on the cord or neuroforaminal narrowing. C4-C5: No disc bulge, mass effect on the cord or neuroforaminal narrowing. C5-C6: No disc bulge, mass effect on the cord or neuroforaminal narrowing. C6-C7: No disc bulge, mass effect on the cord or neuroforaminal narrowing. C7-T1: No disc bulge, mass effect on the cord or neuroforaminal narrowing. Thyroid gland appears unremarkable. IMPRESSION: 1. Early spondylosis changes. 2. No acute fracture or subluxation in the cervical spine. Electronically Signed by: Wilian Aguirre MD. (09/22/2024 02:54:17 EDT)
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
--- NOTE | 2024-09-22 03:03 | XRAY ---
CLINICAL HISTORY: pain/trauma COMPARISON: None. TECHNIQUE: Multiple axial images are obtained from the skull base to the vertex without contrast. CT scan was performed according to ALARA (as low as reasonable achievable). FINDINGS: The brain shows normal morphology, attenuation, and volume for age. No evidence of space occupying lesion, hemorrhage, edema, mass effect, midline shift, extra axial collection, or hydrocephalus is noted. Ventricles, sulci, and basal cisterns are symmetric and normal in size and configuration. The kapoor-white matter differentiation is preserved. Right maxillary sinusitis. Rest of paranasal sinuses and mastoid air cells are well aerated. Orbital contents are within normal limits. Undisplaced fracture of left frontal process of maxilla. Rest of the bony structures are intact. IMPRESSION: 1. No evidence of acute intracranial abnormality is demonstrated 2. Undisplaced fracture of left frontal process of maxilla. 3. Right maxillary sinusitis. Electronically Signed by: Wilian Aguirre MD. (09/22/2024 02:59:08 EDT)
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
[2024-09-22 05:20] VITALS: RESP 16
[2024-09-22 06:45] VITALS: BP 114/70; PULSE 71
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
== END 2024-09-22 06:55 ==
LOC: ED 00:16
DX: Z04.1 Encounter for examination and observation following transport accident (principal); S02.40DA Maxillary fracture, left side, initial encounter for closed fracture; S80.01XA Contusion of right knee, initial encounter; V47.5XXA Car driver injured in collision with fixed or stationary object in traffic accident, initial encounter; F19.10 Other psychoactive substance abuse, uncomplicated; R07.9 Chest pain, unspecified; M54.50 Low back pain, unspecified; M25.561 Pain in right knee; M79.604 Pain in right leg
CPT/HCPCS: 36415; 70450; 70486; 71260; 72125; 73560; 73590; 74177; 76376; 80053; 80307; 81001; 84484; 85025; 99285

== ENCOUNTER 2024-10-07 21:59 | Emergency (ER) | payer OTHER ==
[2024-10-07 22:26] VITALS: TEMP 98.7
--- NOTE | 2024-10-07 22:27 | ERPHSYRPT ---
- History of Present Illness Historian: patient Exam Limitations: no limitations Physician History: Patient has right upper quadrant pain. Is been going on for about 2 days. Eating makes it worse. He has some nausea and vomiting after he eats too. He is never had problems like this before. He does not have any fever or chills.Nothing makes his symptoms better. Eating makes it worse. He has had no recent trauma. He does not have any respiratory symptoms. He does not have any back or flank pain. The pain is described as aching and stabbing. Allergies/Adverse Reactions: No Known Drug Allergies Allergy (Verified 10/07/24 22:26) Home Medications: No Reportable Medications [No Reported Medications] 09/22/24 [History] Hx Tetanus, Diphtheria Vaccination/Date Given: Yes Hx Influenza Vaccination/Date Given: Yes Hx Pneumococcal Vaccination/Date Given: No Travel Risk - Emerging Infectious Disease Are you exhibiting symptoms associated with any current EIDs: No - Review of Systems Constitutional: No Symptoms Eyes: No Symptoms Ears, Nose, & Throat: No Symptoms Respiratory: No Symptoms Cardiac: No Symptoms Abdominal/Gastrointestinal: Abdominal Pain - Past Medical History Pertinent Past Medical History: Yes Neurological History: No Pertinent History ENT History: No Pertinent History Cardiac History: Hypertension Respiratory History: No Pertinent History Endocrine Medical History: No Pertinent History Musculoskeletal History: Other GI Medical History: Hepatitis History: Dialysis Psycho-Social History: Other Male Reproductive Disorders: No Pertinent History Other Medical History: hep C. compartmental syndrome - Past Surgical History Past Surgical History: Yes Neuro Surgical History: No Pertinent History Cardiac: No Pertinent History Respiratory: No Pertinent History Gastrointestinal: No Pertinent History Genitourinary: No Pertinent History Musculoskeletal: Amputation Male Surgical History: No Pertinent History Other Surgical History: LT ABOVE THE KNEE - Social History Smoking Status: Former smoker How long have you smoked: YRS Exposure to second hand smoke: No Drug Use: marijuana, bath salts, methamphetamines, narcotics - Social Determinants of Health Will the patient participate in the screening: Declined to provide - Nursing Vital Signs Nursing Vital Signs: Initial Vital Signs Temperature 98.7 F 10/07/24 22:22 Pulse Rate 95 H 10/07/24 22:22 Respiratory Rate 16 10/07/24 22:22 Blood Pressure 108/74 10/07/24 22:22 O2 Sat by Pulse Oximetry 100 10/07/24 22:22 Pain Scale Pain Intensity 2 - Physical Exam General Appearance: no apparent distress Eye Exam: PERRL/EOMI Ears, Nose, Throat Exam: normal ENT inspection Neck Exam: normal inspection Cardiovascular Exam: regular rate/rhythm Gastrointestinal/Abdomen Exam: soft, tenderness (Right upper quadrant. 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 Skin Exam: normal color, warm - Course Nursing assessment & vital signs reviewed: Yes Ordered Tests: Active Orders 24 hr Category Date Time Status ABDOMEN AND PELVIS W CONTRAST [CT] Stat Exams 10/07/24 22:23 Completed CBC W DIFF Stat Lab 10/07/24 22:41 Completed CMP Stat Lab 10/07/24 22:41 Completed LIPASE Stat Lab 10/07/24 22:41 Completed Medication Summary Discontinued Medications Generic Name Dose Route Start Last Admin Trade Name Freq PRN Reason Stop Dose Admin Hydromorphone HCl 1 mg 10/07/24 22:23 10/07/24 22:58 Hydromorphone 1 Mg/1ml Inj IV 10/07/24 22:24 1 mg STAT ONE Administration Hydromorphone HCl Confirm 10/07/24 22:54 Hydromorphone 1 Mg/1ml Inj Administered 10/07/24 22:55 Dose 1 mg .ROUTE .STK-MED ONE Hydromorphone HCl 1 mg 10/08/24 02:10 10/08/24 02:21 Hydromorphone 1 Mg/1ml Inj IV 10/08/24 02:11 1 mg STAT ONE Administration Hydromorphone HCl Confirm 10/08/24 02:19 Hydromorphone 1 Mg/1ml Inj Administered 10/08/24 02:20 Dose 1 mg .ROUTE .STK-MED ONE Sodium Chloride 1,000 mls @ 999 mls/hr 10/08/24 00:08 10/08/24 01:29 Sodium Chloride 0.9% 1000 Ml IV 10/08/24 01:08 Infused .Q1H1M STA Infusion Sodium Chloride Confirm 10/08/24 00:19 Sodium Chloride 0.9% 1000 Ml Administered 10/08/24 00:20 Dose 1,000 mls @ ud .ROUTE .STK-MED ONE Ondansetron HCl 4 mg 10/07/24 22:23 10/07/24 22:58 Ondansetron Hcl 4 Mg/2 Ml Vial IV 10/07/24 22:24 4 mg STAT ONE Administration Ondansetron HCl Confirm 10/07/24 22:54 Ondansetron Hcl 4 Mg/2 Ml Vial Administered 10/07/24 22:55 Dose 4 mg .ROUTE .STK-MED ONE Ondansetron HCl 4 mg 10/08/24 02:10 10/08/24 02:20 Ondansetron Hcl 4 Mg/2 Ml Vial IV 10/08/24 02:11 4 mg STAT ONE Administration Ondansetron HCl Confirm 10/08/24 02:19 Ondansetron Hcl 4 Mg/2 Ml Vial Administered 10/08/24 02:20 Dose 4 mg .ROUTE .STK-MED ONE Lab/Rad Data: Laboratory Result Diagrams 10/07/24 22:41 10/07/24 22:41 Laboratory Results 10/07/24 10/07/24 Range/Units 22:41 22:41 WBC 9.8 H (4.23-9.07) x10^3/uL RBC 5.09 (4.63-6.08) x10^6/uL Hgb 15.3 (13.7-17.5) g/dL Hct 44.4 (40.1-51.0) % MCV 87.2 (79.0-92.2) fL MCH 30.1 (25.7-32.2) pg MCHC 34.5 (32.3-36.5) g/dL RDW 13.5 (11.6-14.4) % Plt Count 158 L (163-337) x10^3/uL MPV 9.2 L (9.4-12.4) fL Gran % 85.5 H (34.0-67.9) % Immature Gran % (Auto) 0.3 (0.001-0.429) % Nucleat RBC Rel Count 0.0 (0.00-0.2) % Eos # (Auto) 0.20 (0.04-0.54) x10^3/uL Immature Gran # (Auto) 0.03 (0.001-0.031) x10^3u/L Absolute Lymphs (auto) 0.73 L (1.32-3.57) x10^3/uL Absolute Monos (auto) 0.43 (0.30-0.82) x10^3/uL Absolute Nucleated RBC 0.00 (0.00-0.012) x10^3u/L Lymphocytes % 7.5 L (21.8-53.1) % Monocytes % 4.4 L (5.3-12.2) % Eosinophils % 2.0 (0.8-7.0) % Basophils % 0.3 (0.2-1.2) % Absolute Granulocytes 8.35 H (1.78-5.38) x10^3/uL Basophils # 0.03 (0.01-0.08) x10^3/uL Sodium 133 L (135-145) mmol/L Potassium 4.1 (3.5-5.1) mmol/L Chloride 100 (98-107) mmol/L Carbon Dioxide 27 (22-30) mmol/L Anion Gap 10.6 (5-15) MEQ/L BUN 15 (9-20) mg/dL Creatinine 0.72 (0.66-1.25) mg/dL Estimated GFR 121.4 ML/MIN Glucose 94 (74-106) mg/dL Calcium 8.4 (8.4-10.2) mg/dL Total Bilirubin 1.40 H (0.2-1.3) mg/dL AST 2681 H (17-59) U/L ALT 2214 H (0-50) U/L Alkaline Phosphatase 168 H (38-126) U/L Serum Total Protein 6.9 (6.3-8.2) g/dL Albumin 4.2 (3.5-5.0) g/dL Lipase 68 (23-300) U/L - Progress Progress: unchanged Progress Note: The patient has elevated liver enzymes. I went ahead and got a CT of his abdomen and pelvis. That there was no acute findings other than enlarged liver and some steatosis. Gallbladder look good. Other than his elevated transaminases and alk phos and mildly elevated bilirubin his chemistry looked good. I ordered a hepatitis panel. I ordered a liter of fluids for him as well.I spoke with her hospitalist and he said he thinks this patient probably needs GI. Were going to call [facility].Dr. Tadeo accepted the patient 10/08/24 02:27 10/08/24 03:19 Medical Desision Making - Discussion of managment Care discussed with:: hospitalist Agreed on:: Treatment plan, decision to admit Will see patient: in hospital - Risk of complications Low Risk: Low risk of morbidity from additional dx testing or treatment - Departure Departure Disposition: Transfer Clinical Impression: Abdominal pain Condition: Stable Critical Care Time: No Referrals: DOCTOR,NO FAMILY [Primary Care Provider] - Follow up/PCP as directed
[2024-10-07 22:42] LABS: Absolute Neutrophil Ct (ANC) 8.35 x10^3/uL (1.78-5.38); BASOPHIL % 0.3 % (0.2-1.2); Basophil (Absolute #) 0.03 x10^3/uL (0.01-0.08); Hematocrit 44.4 % (40.1-51.0); Hemoglobin 15.3 g/dL (13.7-17.5); IMMATURE GRAN # 0.03 x10^3u/L (0.001-0.031); IMMATURE GRAN % 0.3 % (0.001-0.429); Lymphocyte (Absolute #) 0.73 x10^3/uL (1.32-3.57); Lymphocytes % 7.5 % (21.8-53.1); Mean Cell Volume 87.2 fL (79.0-92.2); Mean Corpuscular Hemoglobin 30.1 pg (25.7-32.2); Mean Corpuscular Hgb Concent. 34.5 g/dL (32.3-36.5); Mean Platelet Volume 9.2 fL (9.4-12.4); Monocyte (Absolute #) 0.43 x10^3/uL (0.30-0.82); Monocytes % 4.4 % (5.3-12.2); Neutrophil % 85.5 % (34.0-67.9); Platelet Count 158 x10^3/uL (163-337); Red Blood Count 5.09 x10^6/uL (4.63-6.08); Red Cell Distribution Width 13.5 % (11.6-14.4); White Blood Count 9.8 x10^3/uL (4.23-9.07)
[2024-10-07] MEDS ORDERED: Zofran 4 MG/2 ML VIAL ONE (22:54)
[2024-10-07] MEDS ORDERED: Hydromorphone 1 mg/ml Injection ONE (22:54)
[2024-10-07] MEDS: Zofran 4 MG/2 ML VIAL IV ONE (22:58)
[2024-10-07] MEDS: Hydromorphone 1 mg/ml Injection IV ONE (22:58)
[2024-10-07 23:23] LABS: ALBUMIN 4.2 g/dL (3.5-5.0); ANION GAP 10.6 MEQ/L (5-15); BILIRUBIN,TOTAL 1.4 mg/dL (0.2-1.3); Calcium 8.4 mg/dL (8.4-10.2); Creatinine 1 0.72 mg/dL (0.66-1.25); EST GLOMERULAR FILTRATION RATE 121.4 ML/MIN; Potassium 4.1 mmol/L (3.5-5.1); Total Protein 6.9 g/dL (6.3-8.2)
[2024-10-08] MEDS ORDERED: Sodium Chloride 0.9% 1000 ML 1,000 ML ONE (00:19)
[2024-10-08] MEDS: Sodium Chloride 0.9% 1000 ML 1,000 ML IV STA (00:29)
--- NOTE | 2024-10-08 01:46 | XRAY ---
CLINICAL HISTORY: ruq pain COMPARISON: Prior CT dated 09/22/2024. TECHNIQUE: A CT scan of the abdomen and pelvis was performed with IV contrast 80 cc Isovue 370. Coronal and Sagittal reformats were obtained. One of the following dose-reduction techniques was utilized for this exam. Automated exposure control, adjustment of the mA and/or kV according to patient size, and use of iterative reconstruction FINDINGS: The gallbladder appears less distended when compared to prior. No radiodense stones. No wall thickening or pericholecystic fluid. The liver is enlarged, measuring 10.1 cm, and shows diffuse hypoattenuation likely due to fatty infiltration. It shows regular margins. No solid or cystic hepatic mass is identified. The portal vein, intrahepatic biliary radicals, and the bile ducts are normal. The common bile duct appears normal. The pancreas appears normal. No peripancreatic fat stranding, pancreatic pseudocyst, or peripancreatic fluid collection. The spleen is normal in size, and no mass is seen. Both adrenal glands are unremarkable. Both kidneys are normal in size, shape, and orientation. No calculi, cyst mass, or hydronephrosis was seen on either side. Both ureters and the urinary bladder appear normal. Stomach and small bowel loops are unremarkable. The caecum and ileocecal junction appear normal. The appendix appears unremarkable. No abnormal gut wall thickening or mass lesion is appreciated. No evidence of bowel obstruction. Pelvic viscera are normally visualized. The prostate and seminal vesicles are normally visualized. No evidence of significant enlargement of the mesenteric or retroperitoneal lymph nodes. Visualized thoracic and lumbar spine shows mild degenerative changes. No lytic or sclerotic lesions in visualized bones. Visualized lung bases are unremarkable. No pleural or pericardial effusion seen. IMPRESSION: 1. No acute intra-abdominal findings. 2. Hepatomegaly with diffuse hepatic steatosis. Electronically Signed by: Joelle Stark MD. (10/08/2024 01:41:46 EDT)
[2024-10-08] MEDS ORDERED: Zofran 4 MG/2 ML VIAL ONE (02:19)
[2024-10-08] MEDS ORDERED: Hydromorphone 1 mg/ml Injection ONE (02:19)
[2024-10-08] MEDS: Zofran 4 MG/2 ML VIAL IV ONE (02:20)
[2024-10-08] MEDS: Hydromorphone 1 mg/ml Injection IV ONE (02:21)
[2024-10-08 04:13] VITALS: BP 109/62; PULSE 87; RESP 16; O2SAT 96
[2024-10-11 19:08] LABS: HBsAg Screen Negative (Negative); HCV Ab Reactive (Non Reactive); Hep B Core Ab, IgM Negative (Negative)
[2024-10-11 19:32] LABS: Hep A Ab, IgM Negative (Negative)
== END 2024-10-08 04:50 | disposition short-term general hospital (02) ==
LOC: EEVIPCON 21:59 → ED 21:59
DX: R10.11 Right upper quadrant pain (principal); R94.5 Abnormal results of liver function studies; R11.2 Nausea with vomiting, unspecified; I10 Essential (primary) hypertension
CPT/HCPCS: 36415; 74177; 80053; 80074; 83690; 85025; 96361; 96374; 96375; 96376; 99285; J1171; J2405